=== PATIENT | male | born 1980 | race Asian ===

== ENCOUNTER 2025-07-11 11:19 | Emergency (ER) | payer BC, SELFPAY ==
[2025-07-11 11:22] VITALS: BP 139/86
[2025-07-11 13:15] VITALS: BMI 25.2
[2025-07-11 13:22] VITALS: BP 128/86
--- NOTE | 2025-07-11 13:29 | ED.GENMED ---
History of Present Illness
General
Chief Complaint: Chest Pain
Source: patient and spouse
Exam Limitations: none
Time Seen by Provider: 07/11/25 13:21
Nursing documentation reviewed up to this point in time: agreed with
History of Present Illness
History of Present Illness:
Note:
CHIEF COMPLAINT(S)
Chest discomfort for five to six weeks.
HISTORY OF PRESENT ILLNESS
The patient is a 45-year-old male who presents with complaints of chest discomfort that has been present for five to six weeks. The pain is described as achy and primarily located in the chest region, occasionally accompanied by numbness down the
left arm. The patient states, 'It kind of just hangs out and stays here.' The discomfort is intermittent, sometimes lasting all day, as experienced on the day of the visit, although there are days when the patient feels fine during activities such
as push-ups and free weights. However, no pain is noted during exercise. The patient also reports occasional shortness of breath.
The patient denies any exacerbation of symptoms with arm movement or changes in posture and does not experience pain radiating elsewhere. No significant medical history or previous surgeries were reported, and the patient is a non-smoker and denies
recreational drug use. Family history is notable for treatment of high cholesterol and diabetes in the patients parents, but no history of heart attacks.
PAST MEDICAL AND SURGICAL HISTORY
The patient denies any history of medical problems or surgeries.
SOCIAL HISTORY
The patient works in the [employer] industry, specifically in [employer], and does not smoke or use recreational drugs.
MEDICATIONS
None reported.
REVIEW OF SYSTEMS
- Cardiovascular: Intermittent chest discomfort, occasional numbness down the left arm.
- Respiratory: Reports occasional shortness of breath.
- Musculoskeletal: No pain on arm or shoulder movement.
PHYSICAL EXAM
General: Alert, no acute distress.
Skin: Warm, dry.
Head: Normocephalic, atraumatic.
Neck: Supple, trachea midline.
Eye, Ears, Nose, Mouth, and Throat: Oral mucosa moist.
Cardiovascular: Normal peripheral perfusion, no edema. S1/S2, no murmur
Respiratory: Respirations are non-labored. lungs clear
Gastrointestinal: Abdomen nondistended.
Back: Normal range of motion, Normal alignment.
Musculoskeletal: Normal ROM, normal strength.
Neurological: Alert and oriented to person, place, time, and situation, no focal neurological deficit observed.
Psychiatric: Cooperative, appropriate mood & affect.
EXTERNAL RECORDS REVIEWED
The patients electrocardiogram and chest X-ray were normal.
PLAN
1. Obtain blood tests to evaluate heart health, including troponin levels, blood counts, kidney function, electrolytes, and liver function tests.
2. Screen for blood clots.
3. If tests return negative, refer the patient to a cream tester for potential stress testing.
4. Monitor for any signs of serious cardiac conditions and manage accordingly, including possible consideration of anxiety contributing to symptoms.
DIFFERENTIAL DIAGNOSIS
The Differential Diagnosis includes, in no particular order and is not limited to:
1. Angina pectoris
2. Myocardial infarction
3. Pericarditis
4. Aortic dissection
5. Pulmonary embolism
6. Gastroesophageal reflux disease
7. Costochondritis
8. Anxiety disorder
9. Musculoskeletal pain
10. Cardiomyopathy
CARE-UPDATE
07/11/25 - 15:15
The pronation test was negative, and the D-dimer test was negative, ruling out acute coronary syndrome (ACS) or pulmonary embolism (PE). A cardiology follow-up has been arranged, and the patient has been advised regarding the precautions of
nitroglycerin use.
EKG
My independent EKG interpretation is:
- EKG performed at 1:31 p.m. on July 11, 2025
- Rhythm: Normal sinus rhythm
- Heart rate: 63 bpm
- NM interval: Normal
- QRS duration: Normal
- QT interval: Normal
- [place]: Normal
- Abnormalities: None detected
Disposition:
SUMMARY OF ENCOUNTER
The patient, a 45-year-old male, presented to the emergency department with complaints of chest discomfort present for five to six weeks. The discomfort was described as achy and sometimes accompanied by numbness down the left arm. An
electrocardiogram (EKG) was performed, showing normal sinus rhythm with no abnormalities detected. Bloodwork including D-dimer and troponin levels were negative, ruling out acute coronary syndrome (ACS) and pulmonary embolism (PE). Given the
duration and nature of the symptoms, as well as normal investigations, the focus was placed on cardiology follow-up for further evaluation.
DISPOSITION
Discharge with follow-up with cardiology.
PLAN
The plan includes arranging a cardiology follow-up to explore any potential underlying cardiac issues. The patient was provided with return precautions and advised on the warning signs to seek immediate medical attention.
INDEPENDENT REVIEW OF LABS AND INTERPRETATION OF TESTS
- My independent review of D-dimer is negative.
- My independent review of troponin is negative.
PROCEDURES
EKG performed showing normal sinus rhythm without detected abnormalities.
PATIENT EDUCATION AND COUNSELING
The patient was educated on the importance of monitoring symptoms and was instructed on return precautions. Information regarding the need for cardiology follow-up and what symptoms would require a more urgent evaluation was provided.
FOLLOW-UP INSTRUCTIONS
Please call the office to schedule a follow-up visit with cardiology.
MEDICAL DECISION MAKING
-Complexity of Data Reviewed:
Differential diagnosis under consideration included Angina pectoris, Myocardial infarction, Pericarditis, Aortic dissection, Pulmonary embolism, Gastroesophageal reflux disease, Costochondritis, Anxiety disorder, Musculoskeletal pain, Cardiomyopathy.
-Data:
Category 1
The following tests were ordered and reviewed - EKG, D-dimer, and troponin levels.
Category 2
My independent interpretation of EKG was performed showing normal sinus rhythm without detected abnormalities.
-Risk:
Consideration of Admission/Observation: Escalation of care including admission/observation was considered given the complexity and risk of the patients presenting complaint, exam findings, and/or their underlying comorbidities. However, ultimately I
feel the patient is safe for outpatient management with close follow-up. Reasoning: Work-up reassuring, does not reveal any acute life/organ threatening processes, patients symptoms well controlled upon reevaluation, reexamination is reassuring,
vitals are stable, patient agreeable with discharge, reliable for follow-up.
DIAGNOSIS
- Chest pain, unspecified (R07.9)
- Anxiety disorder (F41.9)
Phy Exam
Physical Exam
Physical Exam:
.
Scores
Heart Score for Chest Pain Patients
STEMI patient?: No
History: Slightly or Non-Suspicious
ECG: Normal
Age: </= 45 years
Risk Factors: No Risk Factors
Troponin: </= Normal Limit
Heart Score for Chest Pain Patients: 0
Heart Score Risk: 2.5% MACE over next 6 weeks
Course
Orders/Labs/Results
Orders:
Orders
07/11/25
Electrocardiogram (*1) Stat
Comment: DONE
07/11/25 11:20
Electrocardiogram (*1) Urgent
Reason for Study: Chest Pain
EKG- Treatment ONCE
07/11/25 11:25
CXR2 [CR Chest - 2 Views ] Urgent
Comment:
Reason For Exam: chest discomfort for five weeks
07/11/25 13:29
IV Insert/Care/Rem.- Treatment PRN
07/11/25 13:40
Complete Blood Count/With Diff Urgent
Comprehensive Metabolic Panel Urgent
D-Dimer Urgent
Troponin I Urgent
Abnormal Lab Results
07/11/25
13:40
Abs Immat Gran (auto) 0.1 H 10^3/uL
(0-0.05)
Immature Gran % 0.7 H %
(0-0.5)
Total Bilirubin 1.4 H mg/dl
(0.2-1.3)
Albumin 5.3 H g/dl
(3.5-5.0)
07/11/25 13:40
07/11/25 13:40
Vital Signs
Initial and Last Documented VS:
Initial Vital Signs
Temp Pulse Resp BP Pulse Ox
98.0 F 71 16 139/86 98
07/11/25 11:22 07/11/25 11:22 07/11/25 11:22 07/11/25 11:22 07/11/25 11:22
Last Documented Vital Signs
Temp Pulse Resp BP Pulse Ox
98.1 F 80 15 128/86 100
07/11/25 13:30 07/11/25 13:22 07/11/25 13:22 07/11/25 13:22 07/11/25 13:29
*Pulse Oximetry
SaO2: 100
Oxygen Mode of Delivery: Room air
Patient hypoxic: no
*Critical Care Note
Total Time (30-74mins, 75-104mins- exclusive of procedures): Not Applicable
ED Attending Note
-
Portions of this chart may have been created with voice recognition software.� Occasional wrong word or��sound alike� substitutions may have occurred due to the inherent limitations of voice recognition software.
Discharge Plan
Departure
Patient Disposition: Home (Routine Discharge)
Date of Disposition: 07/11/25
Time of Disposition: 15:13
Patient with high blood pressure during this ER visit?: Yes
Condition: Good
Discharge Problem:
Chest pain
Instructions: Chest Pain CBC Follow Up, BLOOD PRESSURE
Referrals:
Jh Varma, [Family Provider, Family Practice] - Call in 1-3 days for appt
Interventions
Interventions:
*Risk Screen - Suicide Last Done: 07/11/25 11:22
*General Assessment Last Done: 07/11/25 13:18
*Neglect/Abuse Screening Last Done: 07/11/25 11:22
*ED- Fall Risk Assessment Last Done: 07/11/25 13:18
*ED COVID-19 Vaccine History Last Done: 07/11/25 13:18
*ED Influenza Vaccine History Last Done: 07/11/25 13:18
*Nursing Disposition Last Done: 07/11/25 15:49
ED- Cardiac Assessment Last Done: 07/11/25 13:16
Discharge Date and Time
Discharge Date/Time: 07/11/25 15:49
Print Language: CHINESE
[2025-07-11 13:51] LABS: Hematocrit 45.3 % (39.0-52.0); Hemoglobin 16.2 g/dL (13.0-18.0); Mean Corp Hgb Conc. 35.8 g/dL (33.0-37.0); Mean Corpuscular Volume 85.8 fL (80.0-94.0); Nucleated Red Blood Cells % 0 % (-); Platelet Count 198 10^3/uL (130-400); Red Cell Dist. Width 12.8 % (11.5-14.5)
[2025-07-11 14:01] LABS: ALT (SGPT) 40 U/L (0-50); AST (SGOT) 28 U/L (17-59); Albumin 5.3 g/dl (3.5-5.0); Alkaline Phosphatase 51 U/L (38-126); Blood Urea Nitrogen 11 mg/dl (9-20); Calcium 10.0 mg/dl (8.4-10.2); Carbon Dioxide 26 mmol/L (22-30); Chloride 103 mmol/L (98-107); Estimated Creatinine Clearance 117 ml/min; Glucose 84 mg/dl (70-99); Potassium 4.1 mmol/L (3.5-5.1); Sodium 136 mmol/L (135-145); Total Protein 8.0 g/dl (6.3-8.2); eGFR > 60.00
[2025-07-11 14:08] LABS: D-Dimer < 0.27 ug/mlFEU (0.00-0.50)
[2025-07-11 14:12] LABS: Troponin I < 0.012 ng/ml
== END 2025-07-11 15:49 | disposition home or self-care (01) ==
LOC: EMR 11:19
PROVIDERS: Emergency Medicine; EMERGENCY PHYSICIAN Emergency Medicine; FAMILY PHYSICIAN Family Medicine
DX: R07.89 Other chest pain (principal); R20.0 Anesthesia of skin; F41.9 Anxiety disorder, unspecified; Z83.3 Family history of diabetes mellitus; Z83.49 Family history of other endocrine, nutritional and metabolic diseases
CPT/HCPCS: 99283; 71046; 80053; 84484; 85025; 85379; 93005

== ENCOUNTER → 2025-07-30 10:50 | Outpatient (REF) | payer BC, SELFPAY | LOC: RCS 10:50 | PROVIDERS: ATTENDING PHYSICIAN Student in an Organized Health Care Education/Training Program; FAMILY PHYSICIAN Family Medicine | DX: R07.2 Precordial pain (principal) | CPT/HCPCS: 93017 ==

== ENCOUNTER → 2025-08-14 08:27 | Outpatient (REF) | payer BC, SELFPAY | LOC: HWRCS 08:27 | PROVIDERS: ATTENDING PHYSICIAN Student in an Organized Health Care Education/Training Program; FAMILY PHYSICIAN Family Medicine | DX: R07.2 Precordial pain (principal) | CPT/HCPCS: 93306 ==